=== PATIENT | female | born 1975 | race Caucasian/White ===

== ENCOUNTER 2018-11-26 20:31 | Emergency (ER) | payer OTHER ==
[~2018-11-26] VITALS: Ht 149.9 cm; Wt 85.7 kg
[2018-11-26 21:00] VITALS: Ht 149.9 cm; Wt 85.7 kg
[2018-11-27 00:49] VITALS: BP 144/99
== END 2018-11-27 00:49 | disposition home or self-care (01) ==
LOC: ED 20:31
DX: K45.8 Other specified abdominal hernia without obstruction or gangrene (principal); Z87.442 Personal history of urinary calculi; Z88.0 Allergy status to penicillin; Z85.828 Personal history of other malignant neoplasm of skin; Z98.890 Other specified postprocedural states
CPT/HCPCS: J1885